=== PATIENT | female | born 1990 | race African-American/Black ===

== ENCOUNTER 2017-01-25 21:27 | Emergency (ER) | payer BC ==
[~2017-01-25] VITALS: Ht 154.9 cm; Wt 62.7 kg
[~2017-01-25 21:27] MED LIST: AMOXICILLIN 8751 TAB PO; CEFTIN500 MG PO; FLOXIN 10 ML10 ML OT; NORCO 325 MG-51 TAB PO; PREDNISONE20 MG PO; PROAIR HFA0.09 MG/AC IH; PROVENTIL0.09 MG/A1 IH; SINGULAIR 110 MG/TAB PO
[2017-01-25 21:39] VITALS: BP 118/67; TEMP 97.7
[2017-01-25 23:29] VITALS: PULSE 72
== END 2017-01-25 23:30 | disposition home or self-care (01) ==
LOC: COL.ER 21:27
DX: J06.9 Acute upper respiratory infection, unspecified (principal); H69.90 Unspecified Eustachian tube disorder, unspecified ear
CPT/HCPCS: J8540

== ENCOUNTER 2018-05-07 08:00 | Outpatient (RCR) | payer OTHER | END 2018-05-29 | disposition home or self-care (01) | LOC: MKS.ESL.PT | DX: M53.3 Sacrococcygeal disorders, not elsewhere classified (principal); M54.6 Pain in thoracic spine; G89.29 Other chronic pain ==

== ENCOUNTER 2018-08-25 13:30 | Outpatient (RCR) | payer OTHER | END 2018-09-07 | disposition home or self-care (01) | LOC: MKS.ESL.PT | DX: M54.6 Pain in thoracic spine (principal); M53.3 Sacrococcygeal disorders, not elsewhere classified; G89.29 Other chronic pain ==

== ENCOUNTER 2018-11-16 19:07 | Emergency (ER) | payer SELFPAY ==
[~2018-11-16] VITALS: Ht 180.3 cm; Wt 67.7 kg
[2018-11-16 19:11] VITALS: BP 128/75; TEMP 98.6
[2018-11-16 20:44] LABS: BASO % 0.5 % (0.0-2.0); EOS # 1.2 (0.0-0.7); GRAN # 2.7 (1.4-6.5); GRAN % 32.3 % (42.2-75.2); HEMOGLOBIN 12.4 g/dl (12.5-16.0); LYMPH # 3.6 (1.2-3.4); LYMPH % 43.7 % (20.0-51.0); MEAN CELL VOLUME 95 fl (80.0-100.0); MEAN CORPUSCULAR HEMOGLOBIN 32 pg (27.0-31.0); MEAN CORPUSCULAR HGB CONC 34 g/dl (33.0-37.0); MEAN PLATELET VOLUME 8.7 fl (7.4-10.4); MONO # 0.7 (0.1-0.6); MONO % 8.3 % (1.7-9.3); PLATELET COUNT 290 K/mm3 (130-400); RED BLOOD COUNT 3.86 M/mm3 (4.10-5.30); REDCELL DISTRIBUTION WIDTH-CV 12.7 % (11.5-14.5)
[2018-11-16 20:47] LABS: HEMATOCRIT 36.8 % (37.0-47.0)
[2018-11-16 21:01] LABS: ALBUMIN 3.9 gm/dL (3.5-5.0); BILIRUBIN,TOTAL 0.4 mg/dL (0.0-1.0); C-REACTIVE PROTEIN 0.9 mg/dL (0.0-0.9); CALCIUM 8.8 mg/dL (8.4-10.2); CREATININE, serum 0.83 (0.52-1.25); POTASSIUM 3.5 mmol/L (3.4-5.0); TOTAL PROTEIN 7.1 gm/dL (6.4-8.2)
[2018-11-16] MEDS ORDERED: PREDNISONE20 MG PO (21:17)
[2018-11-16] MEDS ORDERED: ZITHROMAX Z PA250 MG PO (21:17)
[2018-11-16 21:57] VITALS: PULSE 96
== END 2018-11-16 21:50 | disposition home or self-care (01) ==
LOC: COL.ER 19:07
PROVIDERS: Physician Assistant
DX: J45.901 Unspecified asthma with (acute) exacerbation (principal); J20.9 Acute bronchitis, unspecified; F17.210 Nicotine dependence, cigarettes, uncomplicated
CPT/HCPCS: J8540

== ENCOUNTER 2019-03-16 05:35 | Day surgery (SDC) | payer OTHER ==
[2019-03-16] VITALS (11 sets, daily range): BP systolic 99–118; BP diastolic 66–81; PULSE 66–92; TEMP 96.5–98.3
[~2019-03-16] VITALS: Ht 182.9 cm; Wt 72.8 kg
[~2019-03-16 05:35] MED LIST changes: +ZITHROMAX Z PA250 MG PO
[2019-03-16] MEDS ORDERED: PROVENTIL0.09 MG/A1 IH (06:45)
[2019-03-16] MEDS ORDERED: DESYREL 50MG50 MG PO (06:46)
[2019-03-16] MEDS ORDERED: MELATONIN5 M1 PO (06:46)
[2019-03-16] MEDS ORDERED: PROTONIX 40MG T40 MG PO (06:47)
--- NOTE | 2019-03-16 06:48 | NUR ---
TO [facility] AT 0555- CALL LIGHT IN REACH NO ONE WITH PATIENT AT THIS TIME. WILL CALL FOR RIDE HOME
--- NOTE | 2019-03-16 15:05 | NUR ---
PT RETURNED BY CART INTO BAY 1, PT WITH MODERATE SEDATION PER PROCEDURE SHEET. SEE ANESTHESIA NOTES ON AMOUNTS AND TIMES. PT ASLEEP. VSS, AFEBRILE, SATS 99%. LUNGS CLEAR, HRR, BOWEL SOUNDS HYPOACTIVE. WILL CONT TO MONITOR.
--- NOTE | 2019-03-16 15:09 | NUR ---
PT CONTINUES TO SLEEP. AROUSABLE TO NAME. VSS CONTINUE STABLE, SATS >90% ON RA. WILL CONT TO MONITOR.
--- NOTE | 2019-03-16 15:13 | NUR ---
PT CONTINUES TO SLEEP, WITH AROUSE TO NAME AND QUESTIONS. DENIES PAIN OR NAUSEA. VSS, SATS REMAIN >90% ON RA. OFFERED FLUIDS. PT DENIES AT THIS TIME. WILL CONT TO MONITOR PROGRESS.
--- NOTE | 2019-03-16 15:16 | NUR ---
OFFERED PT FLUIDS. PT REQUESTED HOT TEA. WATER, TEA AND CRACKERS GIVEN TO PT. PT SIPPED ON WATER AND TOLERATED WELL. PURSE WAS REQUESTED BY PT TO CALL HER FRIEND, TO GIVE HER A RIDE AFTER DISCHARGE. VSS, SATS >90% ORIENTED TO TIME, PLACE AND PERSON. DENIES PAIN OR NAUSEA/VOMITING. WILL MONITOR.
--- NOTE | 2019-03-16 15:20 | NUR ---
PT TOLERATING CRACKERS, WATER AND TEA. A/OX3. FRIEND ARRIVED AND IS WITH HER AT BEDSIDE AND TALKING WITH PT. PT DENIES PAIN, NAUSEA/VOMITING. IV DC'D TO LEFT WRIST AND PT TOLERATED WELL.
--- NOTE | 2019-03-16 15:25 | NUR ---
DISCHARGE INSTRUCTIONS GIVEN TO PT, PT VOICES UNDERSTANDING. REQUESTED TO SPEAK WITH DR DE LA TORRE. DR DE LA TORRE NOTIFIED OF THIS. QUESTIONS HAVE BEEN ANSWERED AND PT DENIES ANY FURTHER NEED FOR INSTRUCTION. DISCHARGE PAPERS SIGNED. PT DENIES PAIN, NAUSEA/VOMITING. VSS. PT AMBULATED OUT OF FACILITY INTO FRIEND'S VEHICLE. ALL BELONGINGS SENT WITH PATIENT, INCLUDING DISCHARGE INSTRUCTIONS.
== END 2019-03-16 13:45 | disposition home or self-care (01) ==
LOC: SDCO 05:35
DX: K29.30 Chronic superficial gastritis without bleeding (principal); K59.00 Constipation, unspecified; K92.1 Melena
CPT/HCPCS: OP; J1200; J2250; J2405; J2704; J3010; J7030

== ENCOUNTER → 2019-03-26 | Outpatient (CLI) | payer OTHER ==
[~2019-03-26] MED LIST changes: +AMOXICILLIN 50500 MG PO; +BIAXIN 500MG T500 MG PO; +DESYREL 50MG50 MG PO; +MELATONIN5 M1 PO; +PROTONIX 40MG T40 MG PO
== END ==
LOC: COL.RAD 08:30
DX: N20.0 Calculus of kidney (principal); K63.89 Other specified diseases of intestine; R14.0 Abdominal distension (gaseous)
CPT/HCPCS: Q9967

== ENCOUNTER 2019-03-27 05:46 | Day surgery (SDC) | payer OTHER ==
[~2019-03-27] VITALS: Ht 182.9 cm; Wt 72.8 kg
[~2019-03-27 05:46] MED LIST changes: -AMOXICILLIN 50500 MG PO; -BIAXIN 500MG T500 MG PO
[2019-03-27] MEDS ORDERED: AMOXICILLIN 50500 MG PO (06:10)
[2019-03-27] MEDS ORDERED: BIAXIN 500MG T500 MG PO (06:11)
[2019-03-27] MEDS ORDERED: PROTONIX 40MG T40 MG PO (06:11)
[2019-03-27 06:15] VITALS: BP 116/84; PULSE 92; TEMP 97.6
[2019-03-27 07:50] VITALS: BP 119/99; PULSE 82; TEMP 97.2
--- NOTE | 2019-03-27 07:50 | NUR ---
Pt arrived to post procedure room via cart with Endo RN. Pt is sleepy but will arouse to name. VSS and WNL. Left call light within reach of patient and educated pt on how to use call light. Dimmed lights to enable pt rest. Will continue to monitor.
[2019-03-27 08:05] VITALS: BP 109/80; PULSE 79
--- NOTE | 2019-03-27 08:05 | NUR ---
Pt awake and responding easier/more quickly to questions. Requested some food and drinks and says she is "really hungry." Muffin, tea, and water given per request.
--- NOTE | 2019-03-27 08:08 | NUR ---
Dr. Manriquez at bedside with patient.
[2019-03-27 08:30] VITALS: BP 112/73; PULSE 75
--- NOTE | 2019-03-27 08:30 | NUR ---
Pt states that she is "ready to go home." Pt is awake and alert and called her ride to come get her. Pt meets criteria for discharge, and discharge instructions including adverse signs/symptoms reviewed with patient. Pt's ride at hospital entrance and pt states that she "can't wait to get home...I'm exhausted." VSS and WNL.
== END 2019-03-27 08:47 | disposition home or self-care (01) ==
LOC: SDCO 05:46
DX: K59.00 Constipation, unspecified (principal); K57.30 Diverticulosis of large intestine without perforation or abscess without bleeding; K92.1 Melena; J45.909 Unspecified asthma, uncomplicated; F17.290 Nicotine dependence, other tobacco product, uncomplicated; K21.9 Gastro-esophageal reflux disease without esophagitis; Z87.442 Personal history of urinary calculi; M54.5 Low back pain; Z79.899 Other long term (current) drug therapy
CPT/HCPCS: J2704; J7030

== ENCOUNTER 2019-08-01 22:51 | Emergency (ER) | payer OTHER ==
[~2019-08-01] VITALS: Ht 180.3 cm; Wt 72.7 kg
[~2019-08-01 22:51] MED LIST changes: +AMOXICILLIN 50500 MG PO; +BIAXIN 500MG T500 MG PO
[2019-08-01 22:58] VITALS: BP 120/67; PULSE 102; TEMP 98.3
[2019-08-02] MEDS ORDERED: TYLENOL W/COD1 UDTAB PO (01:00)
== END 2019-08-02 01:30 | disposition home or self-care (01) ==
LOC: COL.ER 22:51
DX: B34.9 Viral infection, unspecified (principal)